=== PATIENT | female | born 1980 | race Caucasian/White ===

== ENCOUNTER → 2016-09-27 | Day surgery (SDC) | payer OTHER ==
[~2016-09-27] VITALS: Ht 162.6 cm; Wt 40.8 kg
[~2016-09-27] MED LIST: 0.9% Sodium Chloride 1,000 ML IV ONE; IBUP200C PO; fentaNYL-PF 50 mCg/mL 2 mL Inj ONE
[2016-09-27 10:41] VITALS: BP 108/69; PULSE 75; RESP 16; O2SAT 100
[2016-09-27 12:21] VITALS: BP 88/48; PULSE 72; RESP 12; O2SAT 99
[2016-09-27 12:32] VITALS: BP 88/50; PULSE 67; RESP 12; O2SAT 99
[2016-09-27 12:41] VITALS: BP 90/58; PULSE 66; RESP 12; O2SAT 100
[2016-09-27 12:51] VITALS: BP 97/56; PULSE 62; RESP 12; O2SAT 100
[2016-09-27 12:57] VITALS: BP 102/59; PULSE 50; RESP 12; O2SAT 100
--- NOTE | 2016-09-27 17:29 | ENDO ---
[address] [address] ENDOSCOPY PROCEDURE PATIENT: SERGIO DIA : 1980 MR#: [id number] ADMIT: 09/27/2016 JOB ID: [id number] DATE OF SERVICE: 09/27/2016 PROCEDURE: Esophagogastroduodenoscopy with biopsy. Colonoscopy with biopsy. PREOPERATIVE DIAGNOSIS(ES): History of rectal cancer, weight loss, history of Javier syndrome. POSTOPERATIVE DIAGNOSIS(ES): 1. Mild nonerosive gastritis. 2. Normal colonoscopy except for surgery seen anastomosis of her previous rectal cancer, status post biopsy. ANESTHESIA: Fentanyl 125 mcg, Versed 6 mg IV administered. COMPLICATIONS: None. BLOOD LOSS: Minimal. DESCRIPTION OF PROCEDURE: After risks and benefits were explained to the patient, informed consent was obtained. After anesthesia administered, an upper endoscope was inserted in mouth intubating the esophagus, stomach, second portion of duodenum. Mucosa carefully examined. After procedure was done, the scope withdrawn and procedure terminated. A colonoscope was inserted per rectum to the terminal ileum. Mucosa carefully examined. The prep of the patient was excellent. After the procedure was done, the scope was withdrawn and the procedure terminated. FINDINGS: Upon inspection of the esophagus, the esophagus was normal without masses, ulcers, or lesions. Z-line located 45 cm from incisors. Upon entering stomach, the stomach also appeared normal without masses, ulcers, or lesions. Retroflexion of the duodenal bulb, first and second portion were normal. Biopsies taken of the duodenum, antrum, body of stomach. Upon inspection of the anus, no masses, hemorrhoids, ulcers, or fissures are seen. Throughout the entire examination, there was a history of rectal cancer anastomosis from her prior surgery that was seen which was biopsied. Intubation of terminal ileum appeared normal. No polyps or masses seen. Retroflexion was normal. IMPRESSION: 1. Normal upper endoscopy except for mild nonerosive gastritis, status post biopsy. 2. Anastomosis from prior surgery in her rectum, status post biopsy. RECOMMENDATIONS: 1. Await pathology results. 2. Repeat colonoscopy in one year given her history of Javier syndrome. 3. Repeat upper endoscopy with biopsy at the antrum every 2-3 years if patient has risk factors for gastric cancer. 4. Follow up in GI clinic as needed.
--- NOTE | 2016-09-30 15:51 | PATH ---
SURGICAL PATHOLOGY Attending Physician:Manuel Carranza MD CASE STATUS: Signed Out PATIENT NAME: SWATI DIA PID: [id number] : 1980 DATE COLLECTED:09/27/2016 22:02 SPECIMEN: 1: Duodenum, Biopsy 2: Stomach, Antrum, Biopsy 3: Gastric, Biopsy 4: Rectum, Biopsy CLINICAL HISTORY: 1). DUODENUM BIOPSY 2). ANTRUM BIOPSY 3). GASTRIC BODY BIOPSY, RULE OUT H.PYLORI 4). RECTAL ANASTAMOSIS BIOPSY FINAL DIAGNOSIS: 1.DUODENUM, BIOPSY: DUODENAL MUCOSA WITH NO DIAGNOSTIC ABNORMALITY. Negative for active inflammation, features of sprue, dysplasia, and malignancy. 2.GASTRIC ANTRUM, BIOPSY: PORTIONS OF GASTRIC ANTRAL MUCOSA WITH NO DIAGNOSTIC ABNORMALITY. No H. pylori organisms identified by H&E stain. Negative for intestinal metaplasia, dysplasia, and malignancy. 3.GASTRIC BODY, BIOPSY: PORTIONS OF GASTRIC BODY-TYPE MUCOSA WITH NO DIAGNOSTIC ABNORMALITY. No H. pylori organisms identified by H&E stain. Immunohistochemistry studies pending; results will be reported as an addendum. Negative for intestinal metaplasia, dysplasia, and malignancy. 4.RECTAL ANASTOMOSIS, BIOPSY: SUPERFICIAL PORTIONS OF COLORECTAL MUCOSA WITH NO DIAGNOSTIC ABNORMALITY. Negative for dysplasia and malignancy. ICD10 K29.7 GROSS DESCRIPTION: The specimen is received in four formalin filled containers labeled with the patient's name. 1). The specimen is labeled "duodenum" and consists of 3 portions of tissue which aggregate to 0.4 x 0.2 x 0.2 CM. The specimen is entirely submitted in cassette 1A. 2). The specimen is labeled "antrum" and consists of 2 portions of tissue which aggregate to 0.4 x 0.3 x 0.2 CM. The specimen is entirely submitted in cassette 2A. 3). The specimen is labeled "gastric body" and consists of 2 portions of tissue which aggregate to 0.4 x 0.2 x 0.2 CM. The specimen is entirely submitted in cassette 3A. 4). The specimen is labeled "rectal anastomosis" and consists of an extremely tiny less than 0.1 CM portion of tissue which is entirely submitted in cassette 4A. 09/27/2016DC MICRO DESCRIPTION: See diagnosis. ICD-9 CODES: CPT CODES: 1: 97226 2: 10865 3: 67478, 24128 4: 56755 PROCEDURE/ADDENDA: Immunohistochemistry SPI Interpretation {Not Entered} Results-Comments Immunohistochemical stains are performed to further evaluate for the presence of Helicobacter organisms. The patient tissue is stained with monoclonal antibody to Helicobacter pylori (SP48). Positive and negative controls stain appropriately. Result: The patient tissue shows no staining. Interpretation: The gastric mucosa is negative for Helicobacter pylori by immunohistochemical stains. 3.GASTRIC BIOPSY: Negative for H. pylori organisms by immunohistochemistry studies. This test was developed and its performance characteristics determined by [facility]. It has not been cleared or approved by the [place]. Food and Drug Administration. The FDA has determined that such clearance or approval is not necessary. This test is used for clinical purposes. It should not be regarded as investigational or for research. Electronically Signed Out Santa Jean MD Electronically Signed Out Santa Jean MD [facility] [address], [place] [address] Technical component performed at [facility], [address], [place], [address]
== END | disposition home or self-care (01) ==
LOC: END 00:10
PROVIDERS: ATTEND Internal Medicine Gastroenterology
DX: R63.4 Abnormal weight loss (principal); Z85.048 Personal history of other malignant neoplasm of rectum, rectosigmoid junction, and anus; Z92.3 Personal history of irradiation; Z92.21 Personal history of antineoplastic chemotherapy; Z98.0 Intestinal bypass and anastomosis status; K29.70 Gastritis, unspecified, without bleeding; F17.210 Nicotine dependence, cigarettes, uncomplicated
CPT/HCPCS: 43239; 45380; 99152; 99153; J2250; J3010; J7030